=== PATIENT | male | born 1945 | race Caucasian/White ===

== ENCOUNTER → 2016-03-31 | Outpatient (CLI) | payer OTHER, BC ==
[~2016-03-31] MED LIST: ADVIL200 MG PO; ASPIR-LOW81 MG PO; BENADRYL25 MG PO; CARDIZEM CD,CA180 MG PO; CO Q-10100 MG PO; COLACE100 MG PO; COMPAZINE10 MG PO; COZAAR50 MG PO; DYNAPEN 250 MG250 MG PO; ENDOCET 5-3251 EACH PO; FAMOTIDINE20 MG PO; GABA PO; HYDROCORTISONE30 G1 TP; KEFLEX500 MG PO; LIFE-PACK0.8 MG PO; LISINOPRIL20 MG PO; LO-DOSE ASPIRIN81 M1 PO; LO-DOSE ASPIRIN81 M2 PO; LOTREL 10/21 CAPSULE PO; MIRALAX17 GM PO; NORCO 5/3251 TABLET PO; PHOSPHATIDYLSERINE PO; RESVERATROL100 MG PO; SYNTHROID88 MCG PO; TYLENOL EXTRA500 MG PO; VICODIN PO; VITAMIN D10000 UNIT PO; VITAMIN D31000 UNI2 PO; [UNRECOGNIZED DRUG - OTHER] PO; [UNRECOGNIZED DRUG - OTHER] PO
[2016-03-31 11:13] LABS: INTER. NORMALIZED RATIO 1.1; PTT 26.4 (25-32)
== END | disposition home or self-care (01) ==
LOC: OPR 09:43 → EDSTATUS 10:00
PROVIDERS: Internal Medicine
PROC: 0WBH3ZX Excision of Retroperitoneum, Percutaneous Approach, Diagnostic (ICD-10-PCS; principal; 2016-03-31)
DX: C79.72 Secondary malignant neoplasm of left adrenal gland (principal); C34.90 Malignant neoplasm of unspecified part of unspecified bronchus or lung
CPT/HCPCS: 71010; 77012; 85610; 85730; 88305; 88341 TC; 88342 TC; J2405; J3010

== ENCOUNTER → 2016-08-13 | Outpatient (CLI) | payer OTHER, BC ==
[2016-08-13 11:25] LABS: BASE EXCESS 0.9 mEq/L (-3 to +3); BICARBONATE 25.2 mEq/L (22-26); CARBOXY HGB 1.3 % (0-5); METHEMOGLOBIN 0.7 % (0-1.5); PCO2 38 mm Hg (35-45); PO2 87 mm Hg (80-100); SITE LR; pH 7.43 (7.35-7.45)
[2016-08-13 11:26] LABS: COMMENTS - BLOOD GASES NAC+; FI02 21 %
== END | disposition home or self-care (01) ==
LOC: RES 10:47
PROVIDERS: Thoracic Surgery (Cardiothoracic Vascular Surgery)
DX: J98.4 Other disorders of lung (principal); R94.2 Abnormal results of pulmonary function studies
CPT/HCPCS: 36600; 82803; 94060; 94726; 94729

== ENCOUNTER → 2016-12-07 | Outpatient (CLI) | payer OTHER, BC ==
[~2016-12-07] VITALS: Ht 170.2 cm; Wt 102.1 kg
[~2016-12-07] MED LIST changes: +OPDIVO100 MG/10 IV; +SYNTHROID100 MCG PO; -SYNTHROID88 MCG PO
== END | disposition home or self-care (01) ==
LOC: OPR 07:39 → EDSTATUS 08:00 → OPR 08:00
PROC: 0TB13ZX Excision of Left Kidney, Percutaneous Approach, Diagnostic (ICD-10-PCS; principal; 2016-12-07)
DX: C79.02 Secondary malignant neoplasm of left kidney and renal pelvis (principal); C34.91 Malignant neoplasm of unspecified part of right bronchus or lung; Z87.891 Personal history of nicotine dependence; C79.72 Secondary malignant neoplasm of left adrenal gland; K44.9 Diaphragmatic hernia without obstruction or gangrene; Z92.21 Personal history of antineoplastic chemotherapy
CPT/HCPCS: 77012; 88305; 88341 TC; 88342 TC; J3010

== ENCOUNTER 2017-02-08 14:41 | Inpatient (IN) | payer OTHER, BC ==
[~2017-02-08] VITALS: Ht 170.2 cm; Wt 97.8 kg
[2017-02-08 15:49] LABS: HEMATOCRIT 37.9 % (38.0-50.0); MCH 26.3 PG (29.0-34.0); MCV 79.8 FL (86-99); PLATELET COUNT 211 K/uL (156-360); RBC DIS.WIDTH-CV 17.6 % (11.8-14.6); RBC DIS.WIDTH-SD 51.5 % (39-53); RED BLOOD COUNT 4.75 M/uL (4.00-5.50)
[2017-02-08 15:53] LABS: CHLORIDE 104 mEq/L (99-109); SODIUM 138 mEq/L (136-147)
[2017-02-08 15:55] LABS: GLUCOSE 126 mg/dL (70-99)
[2017-02-08 15:56] LABS: ANION GAP 12 MEQ/L (2-14)
[2017-02-08 15:57] LABS: POTASSIUM 3.9 mEq/L (3.7-5.4)
[2017-02-08 15:59] LABS: GFR ESTIMATE (CALCULATED) > 59 mL/min/ (58.99-99999)
[2017-02-08 16:00] LABS: UREA NITROGEN (BUN) 15 mg/dL (9-23)
[2017-02-08 16:05] LABS: TROP-I INTERPRETATION NEGATIVE; TROPONIN-I < 0.01 ng/mL (0.0-0.30)
[2017-02-08 18:49] LABS: TROP-I INTERPRETATION NEGATIVE; TROPONIN-I 0.09 ng/mL (0.0-0.30)
[2017-02-08 22:13] VITALS: BP 134/89
[2017-02-08 23:55] VITALS: BP 164/79
[2017-02-09] VITALS (8 sets, daily range): BP systolic 134–177; BP diastolic 7–79
[2017-02-09 00:11] LABS: TROP-I INTERPRETATION POSITIVE
[2017-02-09 01:05] LABS: INTER. NORMALIZED RATIO 1.2; PROTHROMBIN TIME 13.2 SEC (10.2-12.9)
[2017-02-09 01:07] LABS: PTT 21.1 SEC (25-37)
[2017-02-09 09:49] LABS: HEMATOCRIT 39.1 % (38.0-50.0); MCH 25.5 PG (29.0-34.0); MCHC 31.5 G/DL (30.0-36.0); MEAN PLAT.VOLUME 10.8 uM^3 (9.0-12.4); PLATELET COUNT 200 K/uL (156-360); RBC DIS.WIDTH-CV 17.6 % (11.8-14.6); RED BLOOD COUNT 4.83 M/uL (4.00-5.50); WHITE BLOOD COUNT 9.8 K/uL (4.1-10.2)
[2017-02-09 10:25] LABS: TROPONIN-I 6.65 ng/mL (0.0-0.30)
[2017-02-09 10:26] LABS: TROP-I INTERPRETATION POSITIVE
[2017-02-09 10:49] LABS: ANION GAP 10 MEQ/L (2-14); CHLORIDE 103 MEQ/L (99-109); GFR ESTIMATE (CALCULATED) > 59 mL/min/ (58.99-99999); GLUCOSE 104 mg/dL (70-99); POTASSIUM 3.8 MEQ/L (3.7-5.4); SAMPLE HEMOLYSIS CHECK 0; SAMPLE ICTERIC CHECK 0; SAMPLE LIPEMIA CHECK 0; SODIUM 140 MEQ/L (136-147); UREA NITROGEN (BUN) 11 mg/dL (9-23)
[2017-02-09 18:44] LABS: TROP-I INTERPRETATION POSITIVE; TROPONIN-I 13.79 ng/mL (0.0-0.30)
[2017-02-10 00:05] VITALS: BP 116/66
[2017-02-10 03:45] VITALS: BP 136/72
[2017-02-10 07:25] VITALS: BP 128/71
[2017-02-10 07:35] VITALS: BP 103/67
[2017-02-10] MEDS ORDERED: ATORVASTATIN CA80 MG PO (11:56)
[2017-02-10] MEDS ORDERED: NITROSTAT0.4 MG SL (11:56)
[2017-02-10] MEDS ORDERED: LOPRESSOR25 MG PO (11:57)
[2017-02-10] MEDS ORDERED: CLOPIDOGREL75 MG PO (11:58)
[2017-02-10 12:42] VITALS: BP 126/70
== END 2017-02-10 14:10 | disposition home or self-care (01) | DRG 251 ==
LOC: EME 14:41 → 5WEST 19:59 → EDOF 19:59 → ENRESERV 20:13 → 5WEST 21:53 → 4EAST 02-09 01:22 → ENRESERV 02-09 01:45 → 5WEST 02-09 12:40 → ENRESERV 02-09 12:40 → 4EAST 02-09 17:11
PROVIDERS: Emergency Medicine; Hospitalist; Nurse Practitioner Adult Health
DX: I21.4 Non-ST elevation (NSTEMI) myocardial infarction (principal); C79.02 Secondary malignant neoplasm of left kidney and renal pelvis; C34.31 Malignant neoplasm of lower lobe, right bronchus or lung; C79.72 Secondary malignant neoplasm of left adrenal gland; E66.9 Obesity, unspecified; I25.110 Atherosclerotic heart disease of native coronary artery with unstable angina pectoris; I34.1 Nonrheumatic mitral (valve) prolapse; I10 Essential (primary) hypertension; E03.9 Hypothyroidism, unspecified; G47.33 Obstructive sleep apnea (adult) (pediatric); E78.5 Hyperlipidemia, unspecified; H40.9 Unspecified glaucoma; K21.9 Gastro-esophageal reflux disease without esophagitis; I34.0 Nonrheumatic mitral (valve) insufficiency; M19.90 Unspecified osteoarthritis, unspecified site; Z68.34 Body mass index [BMI] 34.0-34.9, adult; Z90.2 Acquired absence of lung [part of]; Z79.82 Long term (current) use of aspirin; Z87.891 Personal history of nicotine dependence; Z87.442 Personal history of urinary calculi; Z86.73 Personal history of transient ischemic attack (TIA), and cerebral infarction without residual deficits; Z88.5 Allergy status to narcotic agent; Z82.0 Family history of epilepsy and other diseases of the nervous system; Z82.49 Family history of ischemic heart disease and other diseases of the circulatory system
CPT/HCPCS: 36415; 71020; 80048; 84484; 85025; 85027; 85610; 85730; 86850; 86900; 86901; 93005; 93306; 99281; 99285; C1725; C1769; C1887; G0378; J0583; J1644; J2060; J2250; J2405; J3010; J7050; Q0164

== ENCOUNTER 2017-02-15 12:01 | Observation (INO) | payer OTHER, BC ==
[~2017-02-15] VITALS: Ht 170.2 cm; Wt 100.7 kg
[~2017-02-15 12:01] MED LIST changes: +ATORVASTATIN CA80 MG PO; +CLOPIDOGREL75 MG PO; +LOPRESSOR25 MG PO; +NITROSTAT0.4 MG SL
[2017-02-15 12:32] LABS: EOSINOPHIL (%) 4.5 % (0-5); EOSINOPHIL COUNT 0.4 K/uL (0-0.3); HEMATOCRIT 34.2 % (38.0-50.0); IMMATURE GRANULOCYTE (%) 0.3 % (0.0-0.7); INSTRUMENT ABS NEUTROPHIL CT 4.9 K/uL; LYMPHOCYTE COUNT 1.1 K/uL (1.0-2.8); MCH 25.8 PG (29.0-34.0); MCHC 31.9 G/DL (30.0-36.0); MCV 80.9 FL (86-99); MEAN PLAT.VOLUME 11.3 uM^3 (9.0-12.4); MONOCYTE (%) 17.9 % (3-12); MONOCYTE COUNT 1.4 K/uL (0-0.8); NEUTROPHIL (%) 62.9 % (45-76); NEUTROPHIL COUNT 4.9 K/uL (1.8-6.4); PLATELET COUNT 181 K/uL (156-360); RBC DIS.WIDTH-SD 50.4 % (39-53); RED BLOOD COUNT 4.23 M/uL (4.00-5.50); WHITE BLOOD COUNT 7.7 K/uL (4.1-10.2)
[2017-02-15 12:39] LABS: INTER. NORMALIZED RATIO 1.2; PROTHROMBIN TIME 13.3 SEC (10.2-12.9)
[2017-02-15 12:40] LABS: CHLORIDE 103 mEq/L (99-109); SODIUM 135 mEq/L (136-147)
[2017-02-15 12:41] LABS: POTASSIUM 4.6 mEq/L (3.7-5.4)
[2017-02-15 12:42] LABS: GLUCOSE 82 mg/dL (70-99)
[2017-02-15 12:43] LABS: ANION GAP 9 MEQ/L (2-14)
[2017-02-15 12:45] LABS: GFR ESTIMATE (CALCULATED) > 59 mL/min/ (58.99-99999)
[2017-02-15 12:46] LABS: UREA NITROGEN (BUN) 19 mg/dL (9-23)
[2017-02-15 12:53] LABS: TROP-I INTERPRETATION NEGATIVE; TROPONIN-I 0.21 ng/mL (0.0-0.30)
[2017-02-15 13:00] LABS: PTT 26.5 SEC (25-37)
[2017-02-15 16:30] LABS: TROP-I INTERPRETATION NEGATIVE; TROPONIN-I 0.23 ng/mL (0.0-0.30)
[2017-02-15 17:30] VITALS: BP 127/60
[2017-02-15 20:00] VITALS: BP 142/65
[2017-02-15 23:19] VITALS: BP 132/63
[2017-02-16 00:12] LABS: TROP-I INTERPRETATION NEGATIVE; TROPONIN-I 0.17 ng/mL (0.0-0.30)
[2017-02-16 03:41] VITALS: BP 138/63
[2017-02-16 05:04] LABS: HEMATOCRIT 33.6 % (38.0-50.0); MCHC 32.1 G/DL (30.0-36.0); MEAN PLAT.VOLUME 11.4 uM^3 (9.0-12.4); PLATELET COUNT 155 K/uL (156-360); RBC DIS.WIDTH-CV 17.1 % (11.8-14.6); RBC DIS.WIDTH-SD 50.7 % (39-53); RED BLOOD COUNT 4.15 M/uL (4.00-5.50)
[2017-02-16 05:21] LABS: CHLORIDE 104 mEq/L (99-109); POTASSIUM 4.2 mEq/L (3.7-5.4); SODIUM 140 mEq/L (136-147)
[2017-02-16 05:23] LABS: GLUCOSE 83 mg/dL (70-99)
[2017-02-16 05:24] LABS: ANION GAP 12 MEQ/L (2-14)
[2017-02-16 05:27] LABS: GFR ESTIMATE (CALCULATED) > 59 mL/min/ (58.99-99999)
[2017-02-16 05:28] LABS: TROP-I INTERPRETATION NEGATIVE; TROPONIN-I 0.15 ng/mL (0.0-0.30); UREA NITROGEN (BUN) 16 mg/dL (9-23)
[2017-02-16] MEDS ORDERED: LOPRESSOR25 MG PO (07:38)
[2017-02-16 08:17] VITALS: BP 110/57
[2017-02-16 11:51] VITALS: BP 125/63
[2017-02-16 12:07] VITALS: BP 90/53
== END 2017-02-16 12:49 | disposition home or self-care (01) ==
LOC: EME 12:01 → EDOF 15:22 → 5WEST 15:22 → ENRESERV 15:38 → EDOF 15:39 → ENRESERV 15:43 → 5WEST 17:18 → ENPENDDIS 02-16 → 5WEST 02-16 12:49
PROVIDERS: Emergency Medicine; Internal Medicine Cardiovascular Disease; Physician Assistant
DX: R07.9 Chest pain, unspecified (principal); I49.5 Sick sinus syndrome; R50.9 Fever, unspecified; I10 Essential (primary) hypertension; I25.10 Atherosclerotic heart disease of native coronary artery without angina pectoris; Z79.82 Long term (current) use of aspirin; Z79.02 Long term (current) use of antithrombotics/antiplatelets; E78.5 Hyperlipidemia, unspecified; I21.4 Non-ST elevation (NSTEMI) myocardial infarction; Z85.118 Personal history of other malignant neoplasm of bronchus and lung; C64.2 Malignant neoplasm of left kidney, except renal pelvis; I34.1 Nonrheumatic mitral (valve) prolapse; G47.33 Obstructive sleep apnea (adult) (pediatric); Z86.73 Personal history of transient ischemic attack (TIA), and cerebral infarction without residual deficits; M19.90 Unspecified osteoarthritis, unspecified site; Z87.442 Personal history of urinary calculi; H40.9 Unspecified glaucoma; Z91.012 Allergy to eggs; Z91.018 Allergy to other foods; E73.9 Lactose intolerance, unspecified; Z88.8 Allergy status to other drugs, medicaments and biological substances; Z88.5 Allergy status to narcotic agent; Z87.891 Personal history of nicotine dependence
CPT/HCPCS: 71010; 80048; 84484; 85025; 85027; 85610; 85730; 93005; 99281; 99285; G0378; J1644

== ENCOUNTER 2017-03-05 08:07 | Observation (INO) | payer OTHER, BC ==
[~2017-03-05] VITALS: Ht 170.2 cm; Wt 101.0 kg
[~2017-03-05 08:07] MED LIST changes: +ISOSORBIDE DINIT5 MG PO; +LORAZEPAM0.5 MG PO; -SYNTHROID100 MCG PO; +SYNTHROID125 MCG PO
[2017-03-05] MEDS ORDERED: COZAAR50 MG PO (08:28)
[2017-03-05] MEDS ORDERED: LIPITOR80 MG PO (08:28)
[2017-03-05 08:57] LABS: BASOPHIL (%) 0.3 % (0-1); EOSINOPHIL (%) 6.8 % (0-5); EOSINOPHIL COUNT 0.4 K/uL (0-0.3); HEMATOCRIT 32.7 % (38.0-50.0); HEMOGLOBIN 10.5 G/DL (12.5-16.6); IMMATURE GRANULOCYTE (%) 0.2 % (0.0-0.7); LYMPHOCYTE (%) 9.1 % (15-42); LYMPHOCYTE COUNT 0.6 K/uL (1.0-2.8); MCH 25.6 PG (29.0-34.0); MCHC 32.1 G/DL (30.0-36.0); MCV 79.8 FL (86-99); MONOCYTE (%) 13.7 % (3-12); MONOCYTE COUNT 0.9 K/uL (0-0.8); NEUTROPHIL (%) 69.9 % (45-76); NEUTROPHIL COUNT 4.4 K/uL (1.8-6.4); PLATELET COUNT 147 K/uL (156-360); RBC DIS.WIDTH-CV 15.9 % (11.8-14.6); RBC DIS.WIDTH-SD 46.5 % (39-53); WHITE BLOOD COUNT 6.3 K/uL (4.1-10.2)
[2017-03-05 09:04] LABS: INTER. NORMALIZED RATIO 1.2
[2017-03-05 09:06] LABS: PTT 38.2 SEC (25-37)
[2017-03-05 09:07] LABS: CHLORIDE 104 mEq/L (99-109); POTASSIUM 3.8 mEq/L (3.7-5.4); SODIUM 137 mEq/L (136-147)
[2017-03-05 09:09] LABS: GLUCOSE 86 mg/dL (70-99)
[2017-03-05 09:13] LABS: CREATININE 0.8 mg/dL (0.6-1.3); GFR ESTIMATE (CALCULATED) > 59 mL/min/ (58.99-99999)
[2017-03-05 09:14] LABS: UREA NITROGEN (BUN) 19 mg/dL (9-23)
[2017-03-05 09:18] LABS: TROP-I INTERPRETATION NEGATIVE; TROPONIN-I < 0.01 ng/mL (0.0-0.30)
[2017-03-05] MEDS ORDERED: ZANTAC150 MG PO (09:40)
[2017-03-05 15:35] LABS: TROP-I INTERPRETATION NEGATIVE; TROPONIN-I < 0.01 ng/mL (0.0-0.30)
[2017-03-05 15:37] VITALS: BP 123/65
[2017-03-05 19:37] VITALS: BP 107/62
[2017-03-05 21:16] LABS: TROP-I INTERPRETATION NEGATIVE; TROPONIN-I < 0.01 ng/mL (0.0-0.30)
[2017-03-05 22:57] VITALS: BP 103/53
[2017-03-06 03:10] VITALS: BP 104/51
[2017-03-06 07:41] VITALS: BP 130/60
[2017-03-06 12:54] VITALS: BP 110/62
[2017-03-06] MEDS ORDERED: PLAVIX75 MG PO (13:11)
[2017-03-06] MEDS ORDERED: IMDUR30 MG PO (13:12)
[2017-03-06] MEDS ORDERED: ATIVAN0.5 MG PO (13:13)
[2017-03-06] MEDS ORDERED: PROTONIX40 MG PO (13:52)
== END 2017-03-06 15:48 | disposition home or self-care (01) ==
LOC: EME 08:07 → EDOF 11:52 → ENRESERV 12:01 → EDOF 12:39 → ENRESERV 14:59 → 5WEST 15:24 → ENPENDDIS 03-06 → 5WEST 03-06 15:48
PROVIDERS: Emergency Medicine; Internal Medicine
DX: R07.9 Chest pain, unspecified (principal); Z85.118 Personal history of other malignant neoplasm of bronchus and lung; C64.2 Malignant neoplasm of left kidney, except renal pelvis; I10 Essential (primary) hypertension; I34.1 Nonrheumatic mitral (valve) prolapse; E03.9 Hypothyroidism, unspecified; I25.10 Atherosclerotic heart disease of native coronary artery without angina pectoris; I25.2 Old myocardial infarction; Z87.891 Personal history of nicotine dependence; E66.9 Obesity, unspecified; Z68.34 Body mass index [BMI] 34.0-34.9, adult; E78.5 Hyperlipidemia, unspecified; G47.33 Obstructive sleep apnea (adult) (pediatric); Z86.73 Personal history of transient ischemic attack (TIA), and cerebral infarction without residual deficits; H40.9 Unspecified glaucoma; Z88.5 Allergy status to narcotic agent; Z91.018 Allergy to other foods; Z82.49 Family history of ischemic heart disease and other diseases of the circulatory system; Z82.0 Family history of epilepsy and other diseases of the nervous system
CPT/HCPCS: 71045; 80048; 83735; 84484; 85025; 85610; 85730; 93005; 99281; 99285; G0378; J1650

== ENCOUNTER 2017-03-22 22:32 | Inpatient (IN) | payer OTHER, BC ==
[~2017-03-22] VITALS: Ht 170.2 cm; Wt 97.5 kg
[~2017-03-22 22:32] MED LIST changes: +ATIVAN0.5 MG PO; +IMDUR30 MG PO; +LIPITOR80 MG PO; +PLAVIX75 MG PO; +PROTONIX40 MG PO; +ZANTAC150 MG PO
[2017-03-23 09:23] VITALS: BP 120/65
[2017-03-23] MEDS ORDERED: ENDOCET 5-3251 EACH PO (13:33)
[2017-03-23 16:08] LABS: HEMATOCRIT 32.7 % (38.0-50.0); HEMOGLOBIN 10.3 G/DL (12.5-16.6); MCH 25.4 PG (29.0-34.0); MCHC 31.5 G/DL (30.0-36.0); MCV 80.7 FL (86-99); PLATELET COUNT 172 K/uL (156-360); RBC DIS.WIDTH-CV 15.8 % (11.8-14.6); RBC DIS.WIDTH-SD 46.4 % (39-53); RED BLOOD COUNT 4.05 M/uL (4.00-5.50); WHITE BLOOD COUNT 8.7 K/uL (4.1-10.2)
[2017-03-23 16:30] VITALS: BP 166/74
[2017-03-23 21:03] VITALS: BP 145/69
[2017-03-23 23:41] VITALS: BP 141/71
[2017-03-24 03:35] VITALS: BP 106/55
[2017-03-24 06:02] LABS: HEMATOCRIT 28.4 % (38.0-50.0); MCH 25.6 PG (29.0-34.0); MCHC 31.7 G/DL (30.0-36.0); MCV 80.9 FL (86-99); PLATELET COUNT 152 K/uL (156-360); RBC DIS.WIDTH-CV 15.7 % (11.8-14.6); RED BLOOD COUNT 3.51 M/uL (4.00-5.50); WHITE BLOOD COUNT 5.8 K/uL (4.1-10.2)
[2017-03-24 06:18] LABS: TROP-I INTERPRETATION NEGATIVE; TROPONIN-I 0.03 ng/mL (0.0-0.30)
[2017-03-24 06:29] LABS: CHLORIDE 101 MEQ/L (99-109); CREATININE 1.2 MG/DL (0.6-1.3); GFR ESTIMATE (CALCULATED) > 59 mL/min/ (58.99-99999); GLUCOSE 98 mg/dL (70-99); POTASSIUM 4.9 MEQ/L (3.7-5.4); SODIUM 137 MEQ/L (136-147); UREA NITROGEN (BUN) 17 mg/dL (9-23)
[2017-03-24 07:37] VITALS: BP 108/58
[2017-03-24 11:51] VITALS: BP 120/66
[2017-03-24 16:53] VITALS: BP 148/74
[2017-03-24 21:39] VITALS: BP 165/93
[2017-03-24 23:35] VITALS: BP 136/73
[2017-03-25 07:40] VITALS: BP 133/66
[2017-03-25 12:12] LABS: HEMATOCRIT 32.6 % (38.0-50.0); HEMOGLOBIN 10.2 G/DL (12.5-16.6); MCV 80.7 FL (86-99)
[2017-03-25 12:50] LABS: CHLORIDE 102 MEQ/L (99-109); CREATININE 0.9 MG/DL (0.6-1.3); GFR ESTIMATE (CALCULATED) > 59 mL/min/ (58.99-99999); GLUCOSE 84 mg/dL (70-99); SODIUM 138 MEQ/L (136-147); UREA NITROGEN (BUN) 10 mg/dL (9-23)
[2017-03-25 12:51] LABS: POTASSIUM 3.9 MEQ/L (3.7-5.4)
[2017-03-25 15:00] VITALS: BP 130/61
[2017-03-25 23:35] VITALS: BP 142/53
[2017-03-26] VITALS: BP 142/53
[2017-03-26 07:37] VITALS: BP 136/73
[2017-03-26 11:29] LABS: TROP-I INTERPRETATION NEGATIVE; TROPONIN-I 0.04 ng/mL (0.0-0.30)
[2017-03-26 16:07] VITALS: BP 130/63
[2017-03-26 21:28] VITALS: BP 133/65
[2017-03-26 23:28] VITALS: BP 123/66
[2017-03-27 07:19] VITALS: BP 143/65
== END 2017-03-27 13:36 | DRG 657 ==
LOC: ENRESERV 22:32 → 2SOUTH 03-23 08:14 → 5EAST 03-23 08:55 → 2SOUTH 03-23 09:14 → ENRESERV 03-23 13:44 → 2SOUTH 03-23 14:49 → 5EAST 03-23 15:48
PROVIDERS: Internal Medicine Cardiovascular Disease; Urology
DX: C79.02 Secondary malignant neoplasm of left kidney and renal pelvis (principal); C79.72 Secondary malignant neoplasm of left adrenal gland; C78.01 Secondary malignant neoplasm of right lung; E03.9 Hypothyroidism, unspecified; I10 Essential (primary) hypertension; Z60.2 Problems related to living alone; I25.10 Atherosclerotic heart disease of native coronary artery without angina pectoris; K66.0 Peritoneal adhesions (postprocedural) (postinfection); E66.3 Overweight; Z79.82 Long term (current) use of aspirin; Z79.02 Long term (current) use of antithrombotics/antiplatelets; Z88.5 Allergy status to narcotic agent; Z91.012 Allergy to eggs; Z91.018 Allergy to other foods; Z90.49 Acquired absence of other specified parts of digestive tract; I25.2 Old myocardial infarction; Z87.891 Personal history of nicotine dependence; Z68.33 Body mass index [BMI] 33.0-33.9, adult
CPT/HCPCS: 36415; 80048; 80061; 80076; 82150; 83690; 84484; 85014; 85018; 85025; 85027; 86850; 86900; 86901; 88307; 88341 TC; 88342 TC; 93005; 94660; 94760; 94799; J0330; J0690; J1170; J1644; J2405; J2710; J3010; J7120

== ENCOUNTER 2017-04-04 11:04 | Observation (INO) | payer OTHER, BC ==
[~2017-04-04] VITALS: Ht 170.2 cm; Wt 92.2 kg
[2017-04-04 12:07] LABS: BASOPHIL (%) 0.5 % (0-1); EOSINOPHIL COUNT 0.9 K/uL (0-0.3); HEMATOCRIT 32.6 % (38.0-50.0); HEMOGLOBIN 10.6 G/DL (12.5-16.6); IMMATURE GRANULOCYTE (%) 0.7 % (0.0-0.7); LYMPHOCYTE (%) 8.6 % (15-42); LYMPHOCYTE COUNT 0.7 K/uL (1.0-2.8); MCH 25.5 PG (29.0-34.0); MCHC 32.5 G/DL (30.0-36.0); MCV 78.6 FL (86-99); MONOCYTE (%) 12.9 % (3-12); MONOCYTE COUNT 1.1 K/uL (0-0.8); NEUTROPHIL (%) 67.3 % (45-76); NEUTROPHIL COUNT 5.8 K/uL (1.8-6.4); RBC DIS.WIDTH-CV 15.9 % (11.8-14.6); RBC DIS.WIDTH-SD 45.3 % (39-53); RED BLOOD COUNT 4.15 M/uL (4.00-5.50); WHITE BLOOD COUNT 8.6 K/uL (4.1-10.2)
[2017-04-04 12:08] LABS: PLATELET COUNT 269 K/uL (156-360)
[2017-04-04 12:16] LABS: CHLORIDE 102 mEq/L (99-109); POTASSIUM 4.9 mEq/L (3.7-5.4); SODIUM 134 mEq/L (136-147)
[2017-04-04 12:17] LABS: GLUCOSE 85 mg/dL (70-99)
[2017-04-04 12:18] LABS: PTT 25.5 SEC (25-37)
[2017-04-04 12:21] LABS: CREATININE 1.2 mg/dL (0.6-1.3); GFR ESTIMATE (CALCULATED) > 59 mL/min/ (58.99-99999)
[2017-04-04 12:22] LABS: UREA NITROGEN (BUN) 15 mg/dL (9-23)
[2017-04-04 12:27] LABS: TROP-I INTERPRETATION NEGATIVE; TROPONIN-I 0.02 ng/mL (0.0-0.30)
[2017-04-04 12:30] LABS: INTER. NORMALIZED RATIO 1.2
[2017-04-04] MEDS ORDERED: LOPRESSOR25 MG PO (13:38)
[2017-04-04] MEDS ORDERED: TYLENOL EXTRA500 MG PO (13:40)
[2017-04-04 15:20] VITALS: BP 127/60
[2017-04-04 15:45] LABS: HDL CHOLESTEROL 36 MG/DL (Desirable>=40); LDL CHOLESTEROL 117 mg/dL (Desirable<100); NON-HDL CHOLESTEROL 139 mg/dL (Desirable<160); TOTAL CHOLESTEROL 175 mg/dL (Desirable<200); TRIGLYCERIDES 110 MG/DL (Normal: <150)
[2017-04-04 18:18] LABS: TROP-I INTERPRETATION NEGATIVE; TROPONIN-I 0.01 ng/mL (0.0-0.30)
[2017-04-04 19:40] VITALS: BP 120/61
[2017-04-05 00:38] VITALS: BP 116/63
[2017-04-05 00:56] LABS: TROP-I INTERPRETATION NEGATIVE; TROPONIN-I 0.02 ng/mL (0.0-0.30)
[2017-04-05 04:26] VITALS: BP 113/56
[2017-04-05 05:49] LABS: HEMATOCRIT 31.9 % (38.0-50.0); HEMOGLOBIN 10.2 G/DL (12.5-16.6); MCH 25.1 PG (29.0-34.0); MCV 78.4 FL (86-99); PLATELET COUNT 268 K/uL (156-360); RBC DIS.WIDTH-CV 15.8 % (11.8-14.6); RBC DIS.WIDTH-SD 44.5 % (39-53); RED BLOOD COUNT 4.07 M/uL (4.00-5.50); WHITE BLOOD COUNT 7.8 K/uL (4.1-10.2)
[2017-04-05 06:06] LABS: TROP-I INTERPRETATION NEGATIVE; TROPONIN-I 0.01 ng/mL (0.0-0.30)
[2017-04-05 06:17] LABS: CHLORIDE 103 MEQ/L (99-109); CREATININE 1.2 MG/DL (0.6-1.3); GFR ESTIMATE (CALCULATED) > 59 mL/min/ (58.99-99999); GLUCOSE 89 mg/dL (70-99); POTASSIUM 4.4 MEQ/L (3.7-5.4); SODIUM 137 MEQ/L (136-147); UREA NITROGEN (BUN) 17 mg/dL (9-23)
[2017-04-05 09:48] VITALS: BP 105/62
[2017-04-05] MEDS ORDERED: IMDUR30 MG PO (11:20)
[2017-04-05 11:43] VITALS: BP 113/80
== END 2017-04-05 15:13 | disposition home or self-care (01) ==
LOC: EME 11:04 → EDOF 13:59 → 5WEST 13:59 → EDOF 13:59 → ENRESERV 14:00 → 5WEST 15:13
PROVIDERS: Emergency Medicine; Hospitalist; Internal Medicine Cardiovascular Disease
DX: R07.9 Chest pain, unspecified (principal); I25.10 Atherosclerotic heart disease of native coronary artery without angina pectoris; Z79.82 Long term (current) use of aspirin; Z79.02 Long term (current) use of antithrombotics/antiplatelets; I10 Essential (primary) hypertension; E03.9 Hypothyroidism, unspecified; I25.2 Old myocardial infarction; Z98.61 Coronary angioplasty status; Z85.118 Personal history of other malignant neoplasm of bronchus and lung; Z85.528 Personal history of other malignant neoplasm of kidney; Z90.5 Acquired absence of kidney; G47.33 Obstructive sleep apnea (adult) (pediatric); Z86.73 Personal history of transient ischemic attack (TIA), and cerebral infarction without residual deficits; M19.90 Unspecified osteoarthritis, unspecified site; Z87.442 Personal history of urinary calculi; Z87.891 Personal history of nicotine dependence; E73.9 Lactose intolerance, unspecified; Z91.012 Allergy to eggs; Z91.018 Allergy to other foods; Z88.5 Allergy status to narcotic agent
CPT/HCPCS: 71045; 80048; 80061; 84484; 85025; 85027; 85610; 85730; 93005; 99281; 99285; G0378; J1644